=== PATIENT | female | born 1990 | race Caucasian/White ===

== ENCOUNTER 2017-06-10 14:44 | Emergency (ER) | payer OTHER, MEDICAID ==
[~2017-06-10] VITALS: Ht 172.7 cm; Wt 113.4 kg
[~2017-06-10 14:44] MED LIST: AMOXICILLIN500 M1 PO; AMOXICILLIN875 MG PO; HYDROCODONE-APA1 TA1 PO; JANUMET XR 1001 EACH PO; NEURONTIN 300300 M1 PO; VIBERZI100 MG PO
[2017-06-10] MEDS ORDERED: LYRICA 50 MG50 MG PO (15:02)
[2017-06-10] MEDS ORDERED: ACYCLOVIR 400400 MG PO (15:02)
[2017-06-10 15:11] LABS: URINE BILIRUBIN NEGATIVE (Negative); URINE BLOOD TRACE (Negative); URINE CLARITY CLEAR; URINE COLOR YELLOW; URINE GLUCOSE-RANDOM TRACE (Negative); URINE KETONES NEGATIVE (Negative); URINE LEUKOCYTES 1+ (Negative); URINE NITRITE NEGATIVE (Negative); URINE PROTEIN TRACE (Negative); URINE SPECIFIC GRAVITY >= 1.030 (1.005-1.030); URINE UROBILINOGEN 0.2 E.U./dl (0.2-1.0)
[2017-06-10 15:20] LABS: SQUAMOUS >10 Many /LPF (0-3); URINE WBC 6-15 Few /HPF (0-5)
[2017-06-10 15:21] LABS: CASTS None Seen /LPF (None Seen); CRYSTALS None Seen /LPF (None Seen); MUCUS 4-6 Moderate strn/LPF (None Seen); URINE RBC 0-2 Rare /HPF (0-2)
[2017-06-10] MEDS ORDERED: CIPRO500 MG PO (15:36)
[2017-06-10] MEDS ORDERED: IBUPROFEN 800800 M1 PO (15:36)
[2017-06-10] MEDS ORDERED: VALTREX1000 MG PO (15:36)
[2017-06-10 15:46] VITALS: BP 143/84
== END 2017-06-10 15:48 | disposition home or self-care (01) ==
LOC: M.ERS 14:44
PROVIDERS: Physician Assistant
DX: A59.01 Trichomonal vulvovaginitis (principal); A60.04 Herpesviral vulvovaginitis; N30.00 Acute cystitis without hematuria; E11.9 Type 2 diabetes mellitus without complications; F17.210 Nicotine dependence, cigarettes, uncomplicated; F10.99 Alcohol use, unspecified with unspecified alcohol-induced disorder; Z87.19 Personal history of other diseases of the digestive system

== ENCOUNTER 2021-06-24 09:34 | Emergency (ER) | payer MEDICAID ==
[~2021-06-24] VITALS: Ht 172.7 cm; Wt 122.5 kg
[~2021-06-24 09:34] MED LIST changes: +ACYCLOVIR 400400 MG PO; +CIPRO500 MG PO; +IBUPROFEN 800800 M1 PO; +LYRICA 50 MG50 MG PO; +VALTREX1000 MG PO
[2021-06-24] MEDS ORDERED: CENTANY30 GM TOP (11:02)
[2021-06-24] MEDS ORDERED: DOXYCYCLINE 10100 MG PO (11:02)
[2021-06-24] MEDS ORDERED: APAP W/CODEINE1 TA2 PO (11:02)
[2021-06-24 11:27] VITALS: BP 139/89
== END 2021-06-24 11:28 | disposition home or self-care (01) ==
LOC: M.ERS 09:34
DX: L02.416 Cutaneous abscess of left lower limb (principal); E11.9 Type 2 diabetes mellitus without complications; F17.210 Nicotine dependence, cigarettes, uncomplicated